=== PATIENT | female | born 1945 | race Caucasian/White ===

== ENCOUNTER 2016-12-10 17:22 | Emergency (ER) | payer MEDICARE, OTHER ==
--- NOTE | 2016-12-10 17:51 | EDM.PDOC ---
ED HPI GENERAL MEDICAL PROBLEM - General Chief Complaint: Abdominal Pain Stated Complaint: Rectal bleeding starting earlier today. No history of the same. Time Seen by Provider: 12/10/16 17:41 Source of Information: Reports: Patient History Limitations: Reports: No Limitations, Respiratory Distress - History of Present Illness INITIAL COMMENTS - FREE TEXT/NARRATIVE: Patient started having dark red bleeding and stool at home at approximately 4 pm. No history of the same. Onset: Today, Sudden Duration: Minutes:, Getting Worse, Heavy Location: Reports: Other (rectal bleeding) Quality: Reports: Pressure, Other (rectal pressure) Severity: Moderate Improves with: Reports: None Worsens with: Reports: None Associated Symptoms: Reports: No Other Symptoms - Related Data Allergies Allergy/AdvReac Type Severity Reaction Status Date / Time environmental Allergy Chest Uncoded 12/10/16 19:42 Tightness Home Meds: Home Meds Albuterol/Ipratropium [Combivent] 1 puff INH QID 06/11/13 [History] buPROPion HCl [Wellbutrin Xl] 150 mg PO DAILY 06/11/13 [History] Albuterol Sulfate [Proair Hfa] 2 puff PO Q4H PRN 10/10/15 [History] Aspirin [Halfprin] 1 tab PO DAILY 10/10/15 [History] Calcium Carbonate/Vitamin D3 [Calcium 600 + Vit D 400 Softgl] 1 tab PO BID 10/09 [History] Past Medical History Cardiovascular History: Reports: None Respiratory History: Reports: COPD Gastrointestinal History: Reports: Cholelithiasis, Chronic Constipation, Chronic Diarrhea, Colon Polyp, Other (See Below) Other Gastrointestinal History: LOWER ABD. PAIN AND BLOATING Genitourinary History: Reports: None [employer] History: Reports: Musculoskeletal History: Reports: Back Pain, Chronic Neurological History: Reports: None Psychiatric History: Reports: Anxiety Endocrine/Metabolic History: Reports: Osteopenia, Vitamin D Deficiency Hematologic History: Reports: None Immunologic History: Reports: None Oncologic (Cancer) History: Reports: None Dermatologic History: Reports: None - Past Surgical History Head Surgeries/Procedures: Reports: None Cardiovascular Surgical History: Reports: None GI Surgical History: Reports: None Female Surgical History: Reports: None Neurological Surgical History: Reports: None Musculoskeletal Surgical History: Reports: None Social & Family History - Tobacco Use Smoking Status *Q: Current Every Day Smoker Years of Tobacco use: 48 Packs/Tins Daily: 0.5 - Alcohol Use Days Per Week of Alcohol Use: 0 - Recreational Drug Use Recreational Drug Use: No Drug Use in Last 12 Months: No ED ROS GENERAL - Review of Systems Review Of Systems: See Below Constitutional: Reports: No Symptoms HEENT: Reports: No Symptoms Respiratory: Reports: No Symptoms Cardiovascular: Reports: No Symptoms Endocrine: Reports: No Symptoms GI/Abdominal: Reports: Bloody Stool, Other (sudden onset rectal pressure and bloody stools 2 hours ago). Denies: Abdominal Pain, Anorexia, Distension, Flatus : Reports: No Symptoms Musculoskeletal: Reports: No Symptoms Skin: Reports: No Symptoms Neurological: Reports: No Symptoms Psychiatric: Reports: No Symptoms Hematologic/Lymphatic: Reports: No Symptoms Immunologic: Reports: No Symptoms ED EXAM, GI/ABD - Physical Exam Exam: See Below Exam Limited By: No Limitations General Appearance: Alert, WD/WN, No Apparent Distress Eyes: Bilateral: Normal Appearance, EOMI Ears: Normal External Exam, Normal TMs Nose: Normal Inspection, Normal Mucosa, No Blood Throat/Mouth: Normal Inspection, Normal Lips, Normal Teeth, Normal Oropharynx Head: Atraumatic, Normocephalic Neck: Normal Inspection, Supple, Non-Tender Respiratory/Chest: No Respiratory Distress, Lungs Clear Cardiovascular: Normal Peripheral Pulses, Regular Rate, Rhythm, No Edema, No JVD , No Murmur, No Rub GI/Abdominal: Normal Bowel Sounds, Soft, Non-Tender, No Organomegaly, No Distention, No Mass, Other (very mild rlq tenderness noted after several bloody stools). No: Guarding, Rebound Rectal (Female) Exam: Normal Exam, Normal Rectal Tone, Bloody Stool, Hemorrhoids , Other (non thrombosed external hemorrhoid). No: Decreased Rectal Tone Back Exam: Normal Inspection, Full Range of Motion. No: CVA Tenderness (L), CVA Tenderness (R) Extremities: Normal Inspection, Normal Range of Motion, Non-Tender, No Pedal Edema, Normal Capillary Refill Neurological: Alert, Oriented, CN II-XII Intact, Normal Cognition, Normal Gait Psychiatric: Normal Affect, Normal Mood Skin Exam: Warm, Dry, Intact, Normal Color, No Rash Lymphatic: No Adenopathy Course - Vital Signs Text/Narrative:: Patient evaluated and labs and diagnostics done. Pt had three large bloody stools in ER. Decision made to transfer to higher level of care and patient is agreeable. Called [facility] one call to arrange. transfer via [facility] ambulance. IV of Normal saline at 200 an hour started prior to dischage. Vitals remained stable while in ER Last Recorded V/S: Last Vital Signs Temp 36.6 C 12/10/16 19:47 Pulse 105 H 12/10/16 19:57 Resp 14 12/10/16 19:57 BP 164/86 H 12/10/16 19:57 Pulse Ox 93 L 12/10/16 19:57 - Orders/Labs/Meds Labs: Laboratory Tests 12/10/16 12/10/16 Range/Units 18:13 18:13 WBC 9.3 (4.0-10.0) x10^3/uL RBC 4.76 (4.00-5.50) x10^6/uL Hgb 14.5 (12.0-16.0) g/dL Hct 44.3 (33.0-47.0) % MCV 93.1 H (78.0-93.0) fL MCH 30.5 (26.0-32.0) pg MCHC 32.7 (32.0-36.0) g/dL RDW Coeff of Good 13.0 (10.0-15.0) % Plt Count 332 (130-400) x10^3/uL Neut % (Auto) 71.2 (50.0-80.0) % Lymph % (Auto) 19.8 L (25.0-50.0) % Johnston % (Auto) 7.5 (2.0-11.0) % Eos % (Auto) 1.3 (0.0-4.0) % Baso % (Auto) 0.2 (0.2-1.2) % Sodium 142 (136-145) mmol/L Potassium 4.0 (3.5-5.1) mmol/L Chloride 105 (98-107) mmol/L Carbon Dioxide 27 (21-32) mmol/L BUN 10 (7-18) mg/dL Creatinine 0.9 (0.55-1.02) mg/dL Est Cr Clr Drug Dosing TNP Estimated GFR (MDRD) > 60 Glucose 102 (74-106) mg/dL Calcium 8.7 (8.5-10.1) mg/dL Corrected Calcium 9.26 (8.5-10.1) mg/dL Total Bilirubin 0.4 (0.2-1.0) mg/dL AST 10 L (15-37) U/L ALT 22 (14-59) U/L Alkaline Phosphatase 151 H (46-116) U/L Total Protein 7.0 (6.4-8.2) g/dL Albumin 3.3 L (3.4-5.0) g/dL Globulin 3.7 Albumin/Globulin Ratio 0.89 Meds: Medications Discontinued Medications Generic Name Dose Route Start Last Admin Trade Name Freq PRN Reason Stop Dose Admin Ondansetron HCl 4 mg 12/10/16 19:08 12/10/16 20:19 Zofran IVPUSH 12/10/16 19:09 Not Given ONETIME ONE Departure - Departure Time of Disposition: 20:10 Disposition: DC/Tfer to Acute Hospital 02 Condition: fair Clinical Impression: GIB (gastrointestinal bleeding) - Discharge Information Referrals: Susan Orozco PA-C [Primary Care Provider] - Forms: ED Department Discharge, Interfacility Transfer [facility]
[2016-12-10 18:42] LABS: CHLORIDE,CL 105 mmol/L (98-107); SODIUM,NA 142 mmol/L (136-145)
[2016-12-10] MEDS ORDERED: Ondansetron 4 MG/2 ML SDV IVPUSH ONE (19:08)
[2016-12-10 19:58] VITALS: BP 164/86
== END 2016-12-10 20:10 | disposition short-term general hospital (02) ==
LOC: VM.ED 17:22
DX: K92.2 Gastrointestinal hemorrhage, unspecified (principal); J44.9 Chronic obstructive pulmonary disease, unspecified; F41.9 Anxiety disorder, unspecified; F17.210 Nicotine dependence, cigarettes, uncomplicated; Z79.899 Other long term (current) drug therapy; Z79.82 Long term (current) use of aspirin
CPT/HCPCS: 36415; 80053; 85025; 99284; 99284-GF